=== PATIENT | male | born 1955 | race Caucasian/White ===

== ENCOUNTER 2020-11-21 23:37 | Emergency (ER) | payer OTHER ==
[~2020-11-21 23:37] MED LIST: ASPIRIN CHEWABL81 MG PO; LIPITOR TAB 2020 MG PO; MICROZIDE12.5 MG PO; OMNICEF 300 MG300 MG PO
[2020-11-22 02:03] LABS: HEMOGLOBIN 15.8 gm/dl (14.0-17.5); WHITE BLOOD COUNT 9.3 K/UL (4.5-11.0)
[2020-11-22 02:16] LABS: BUN/CREATININE RATIO 13 (0-10)
[2020-11-22] MEDS ORDERED: TESSALON PERLE100 MG PO (02:58)
== END 2020-11-22 03:21 | disposition home or self-care (01) ==
LOC: ER1 23:37
PROVIDERS: Physician Assistant
DX: J06.9 Acute upper respiratory infection, unspecified (principal); E78.5 Hyperlipidemia, unspecified; I10 Essential (primary) hypertension; Z86.73 Personal history of transient ischemic attack (TIA), and cerebral infarction without residual deficits; Z79.01 Long term (current) use of anticoagulants; Z20.822 Contact with and (suspected) exposure to COVID-19
CPT/HCPCS: 0240U; 71045; 80053; 85025; 87081; 87880; 93005; 99285

== ENCOUNTER 2021-10-13 21:33 | Emergency (ER) | payer OTHER ==
[~2021-10-13 21:33] MED LIST changes: +TESSALON PERLE100 MG PO
[2021-10-13 22:09] LABS: HEMOGLOBIN 15.4 gm/dl (14.0-17.5); RED BLOOD COUNT 4.98 M/UL (4.20-5.50)
[2021-10-13 22:23] LABS: BUN/CREATININE RATIO 19 (0-10)
== END 2021-10-13 23:25 | disposition left against medical advice (07) ==
LOC: ER1 21:33
PROVIDERS: Emergency Medicine
DX: F10.129 Alcohol abuse with intoxication, unspecified (principal); Y90.6 Blood alcohol level of 120-199 mg/100 ml; Z86.73 Personal history of transient ischemic attack (TIA), and cerebral infarction without residual deficits
CPT/HCPCS: 70450; 70496; 70498; 71045; 72170; 73552; 80053; 82550; 82553; 84484; 85025; 85610; 85730; 93005; 99283; G0480; Q9967